=== PATIENT | female | born 1980 | race American Indian/Alaskan Native ===

== ENCOUNTER 2019-02-21 10:39 | Observation (INO) | payer OTHER ==
[2019-02-21 11:38] LABS: Mean Corpuscular HGB Conc 28 % (30-34); Platelet Count 559 K/mm3 (140-440); Red Blood Count 3.49 M/mm3 (3.65-5.03)
[2019-02-21 11:39] LABS: Mean Corpuscular Volume 53 fl (79-97); Red Cell Distribution Width 27.7 % (13.2-15.2)
[2019-02-21 11:40] LABS: Hematocrit 18.5 % (30.3-42.9); Hemoglobin 5.1 gm/dl (10.1-14.3)
--- NOTE | 2019-02-21 11:41 | Emergency Department Report ---
ED General Adult HPI - General Chief complaint: Recheck/Abnormal Lab/Rx Stated complaint: BLOOD TRANSFUSION PER DR Time Seen by Provider: 02/21/19 10:49 Source: patient Mode of arrival: Ambulatory Limitations: No Limitations - History of Present Illness Initial comments: The patient presents to the emergency department with a chief complaint abnormal labs. Patient states she has a history of heavy menstrual cycles and had a blood transfusion months ago for low hemoglobin. The patient states that she has not had a gynecological evaluation for her abnormal menstrual cycles. Patient complains of having fatigue with exertion. Patient denies chest pain, abdominal pain, but does endorse shortness of breath with exertion -: Gradual Severity scale (0 -10): 0 Improves with: none Worsens with: none Associated Symptoms: denies other symptoms Treatments Prior to Arrival: none - Related Data Home Medications Medication Instructions Recorded Confirmed Last Taken One-Daily Multi-Vitamin 1 tab-cap PO DAILY 02/21/19 02/21/19 Unknown Allergies Allergy/AdvReac Type Severity Reaction Status Date / Time No Known Allergies Allergy Verified 02/21/19 10:44 ED Review of Systems ROS: Stated complaint: BLOOD TRANSFUSION PER DR Other details as noted in HPI Comment: All other systems reviewed and negative Constitutional: denies: chills, fever Eyes: denies: eye pain, eye discharge, vision change ENT: denies: ear pain, throat pain Respiratory: denies: cough, shortness of breath, wheezing Cardiovascular: denies: chest pain, palpitations Endocrine: no symptoms reported Gastrointestinal: denies: abdominal pain, nausea, diarrhea Genitourinary: denies: urgency, dysuria, discharge Musculoskeletal: denies: back pain, joint swelling, arthralgia Skin: denies: rash, lesions Neurological: denies: headache, weakness, paresthesias Psychiatric: denies: anxiety, depression Hematological/Lymphatic: denies: easy bleeding, easy bruising ED Past Medical Hx - Past Medical History Previous Medical History?: No - Surgical History Past Surgical History?: Yes Hx Cholecystectomy: Yes Additional Surgical History: gastric sleeve, x 2 - Social History Smoking Status: Never Smoker Substance Use Type: Alcohol - Medications Home Medications: Home Medications Medication Instructions Recorded Confirmed Last Taken Type One-Daily Multi-Vitamin 1 tab-cap PO DAILY 02/21/19 02/21/19 Unknown History ED Physical Exam - General Limitations: No Limitations General appearance: alert, in no apparent distress - Head Head exam: Present: atraumatic, normocephalic - Eye Eye exam: Present: other (pale palpebral conjunctiva) - ENT ENT exam: Present: mucous membranes moist - Neck Neck exam: Present: normal inspection - Respiratory Respiratory exam: Present: normal lung sounds bilaterally. Absent: respiratory distress - Cardiovascular Cardiovascular Exam: Present: regular rate, normal rhythm. Absent: systolic murmur, diastolic murmur, rubs, gallop - GI/Abdominal GI/Abdominal exam: Present: soft, normal bowel sounds. Absent: distended, tenderness - Extremities Exam Extremities exam: Present: normal inspection - Back Exam Back exam: Present: normal inspection - Neurological Exam Neurological exam: Present: alert, oriented X3, CN II-XII intact. Absent: motor sensory deficit - Psychiatric Psychiatric exam: Present: normal affect, normal mood - Skin Skin exam: Present: warm, dry, intact, normal color. Absent: rash ED Course Vital Signs 02/21/19 02/21/19 02/21/19 10:40 11:00 11:02 Temperature 98.3 F Pulse Rate 102 H 87 Respiratory 16 10 L 16 Rate Blood Pressure 138/92 Blood Pressure 155/95 [Right] O2 Sat by Pulse 100 100 100 Oximetry 02/21/19 02/21/19 02/21/19 11:31 12:01 12:30 Temperature Pulse Rate 101 H 89 89 Respiratory 18 14 14 Rate Blood Pressure 147/100 147/100 140/88 Blood Pressure [Right] O2 Sat by Pulse 100 100 Oximetry 02/21/19 02/21/19 02/21/19 13:00 13:30 14:01 Temperature Pulse Rate 85 86 101 H Respiratory 14 11 L 14 Rate Blood Pressure 129/86 134/91 159/75 Blood Pressure [Right] O2 Sat by Pulse Oximetry 02/21/19 02/21/19 14:30 15:00 Temperature Pulse Rate 92 H 90 Respiratory 14 13 Rate Blood Pressure 149/89 133/85 Blood Pressure [Right] O2 Sat by Pulse Oximetry ED Medical Decision Making - Lab Data Result diagrams: 02/22/19 10:16 02/21/19 11:21 Lab Results 02/21/19 02/21/19 02/21/19 Range/Units 11:21 11:21 11:21 WBC 4.5 (4.5-11.0) K/mm3 RBC 3.49 L (3.65-5.03) M/mm3 Hgb 5.1 L* (10.1-14.3) gm/dl Hct 18.5 L* (30.3-42.9) % MCV 53 L (79-97) fl MCH 15 L (28-32) pg MCHC 28 L (30-34) % RDW 27.7 H (13.2-15.2) % Plt Count 559 H (140-440) K/mm3 PT 13.4 (12.2-14.9) Sec. INR 0.96 (0.87-1.13) APTT 26.4 (24.2-36.6) Sec. Sodium 138 (137-145) mmol/L Potassium 4.2 (3.6-5.0) mmol/L Chloride 102.3 (98-107) mmol/L Carbon Dioxide 26 (22-30) mmol/L Anion Gap 14 mmol/L BUN 8 (7-17) mg/dL Creatinine 0.6 L (0.7-1.2) mg/dL Estimated GFR > 60 ml/min BUN/Creatinine Ratio 13 % Glucose 100 (65-100) mg/dL Calcium 8.9 (8.4-10.2) mg/dL Total Bilirubin 0.40 (0.1-1.2) mg/dL AST 14 (5-40) units/L ALT 8 (7-56) units/L Alkaline Phosphatase 47 (35-129) units/L Total Protein 7.1 (6.3-8.2) g/dL Albumin 3.8 L (3.9-5) g/dL Albumin/Globulin Ratio 1.2 % - Medical Decision Making Results discussed with patient 2 units of packed RBCs ordered Critical Care Time: Yes Critical care time in (mins) excluding proc time.: 35 Critical care attestation.: If time is entered above; I have spent that time in minutes in the direct care of this critically ill patient, excluding procedure time. ED Disposition Clinical Impression: Anemia requiring transfusions Disposition: OP ADMIT IP TO THIS HOSP Is pt being admited?: Yes Does the pt Need Aspirin: No Condition: Good
[2019-02-21 11:47] LABS: INR 0.96 (0.87-1.13)
[2019-02-21 11:48] LABS: Partial Thromboplastin Time 26.4 Sec. (24.2-36.6)
[2019-02-21 12:01] LABS: Alanine Aminotransferase 8 units/L (7-56); Albumin 3.8 g/dL (3.9-5); BUN/Creatinine Ratio 13; Blood Urea Nitrogen 8 mg/dL (7-17); Calcium 8.9 mg/dL (8.4-10.2); Hemolysis Index 0
[2019-02-21] MEDS ORDERED: NACL 0.9% 500 ML 500 ML IV ONE ×5 (12:45→14:30)
--- NOTE | 2019-02-21 12:56 | History and Physical Report ---
History of Present Illness Chief complaint: IM weak, and my periods are really heavy History of present illness: 38 YO Female with Iron Deficiency Anemia, Menorrhagia presents to ED for evaluation. Pt states that she has experienced generalized weakness and fatigue over the past 6 months and well as "heavy periods" with worsening symptoms over the past 2 months. Pt reports having to use an entire box of tampons as well as panty liners, with episodes of soiling her clothes with blood. Pt denies fever, chills, CP, Palpitations, trauma, BRBPR, unintentional weight loss, night sweats, abdominal pain, adbominal fullness or distention, changes in bowel habits, changes in size, caliber, or color of stool. Pt seen and evaluated in ED and found to have Symptomatic Anemia with HBG of 5.1, as well as Menorrhagia. Pt admitted to medical floor for PRBC transfusion. Pt acknowledges noncompliance with Iron Replacement Therapy due to constipation. No prior admission for review. No medication listed for reconciliation at time of admission. Past History Past Medical History: anemia Past Surgical History: cholecystectomy, , Other (gastric sleeve) Social history: single, lives with family. denies: smoking, alcohol abuse, prescription drug abuse Family history: hypertension Medications and Allergies Allergies Allergy/AdvReac Type Severity Reaction Status Date / Time No Known Allergies Allergy Verified 02/21/19 10:44 Home Medications Medication Instructions Recorded Confirmed Last Taken Type No Known Home Medications [No 02/21/19 02/21/19 Unknown History Reported Home Medications] Review of Systems Constitutional: fatigue, weakness, no weight loss, no weight gain, no fever, no chills Ears, nose, mouth and throat: no ear pain, no ear discharge, no tinnitis, no decreased hearing, no nasal congestion Breasts: no change in shape, no swelling, no mass Cardiovascular: no chest pain, no orthopnea, no palpitations, no rapid/irregular heart beat, no syncope Respiratory: no cough, no cough with sputum, no excessive sputum, no hemoptysis, no shortness of breath Gastrointestinal: no abdominal pain, no nausea, no vomiting, no diarrhea Genitourinary Female: menorrhagia, no pelvic pain, no flank pain, no dysuria, no urinary frequency, no urgency, no incomplete emptying, no urge incontinence, no mixed incontinence, no difficulty voiding Rectal: no pain, no incontinence, no bleeding Musculoskeletal: no neck stiffness, no arm numbness/tingling, no redness of joints Integumentary: no rash, no pruritis, no redness, no wounds, no boils Neurological: no paralysis, no weakness, no parathesias, no numbness, no seizures, no syncope, no ataxia Psychiatric: no anxiety, no memory loss, no change in sleep habits, no hypersomnia, no change in libido, no suicidal ideation Endocrine: no cold intolerance, no heat intolerance, no excessive thirst, no polydipsia, no polyuria, no nocturia Hematologic/Lymphatic: no easy bruising, no easy bleeding, no lymphadenopathy, no lymphedema Allergic/Immunologic: no urticaria, no allergic rhinitis, no wheezing, no anaphylaxis Exam - Constitutional Vitals: Temp Pulse Resp BP Pulse Ox 98.3 F 101 H 18 147/100 100 02/21/19 10:40 02/21/19 11:31 02/21/19 11:31 02/21/19 11:31 02/21/19 11:31 General appearance: Present: no acute distress, well-nourished - EENT Eyes: Present: PERRL (conjunctival pallor) ENT: hearing intact, clear oral mucosa - Neck Neck: Present: supple, normal ROM - Respiratory Respiratory effort: normal Respiratory: bilateral: CTA - Cardiovascular Heart Sounds: Present: S1 & S2. Absent: rub, click - Extremities Extremities: pulses symmetrical, No edema Peripheral Pulses: within normal limits - Abdominal General gastrointestinal: Present: soft, non-tender, non-distended, normal bowel sounds Female genitourinary: Present: normal - Integumentary Integumentary: Present: clear, warm, dry - Musculoskeletal Musculoskeletal: gait normal, strength equal bilaterally - Psychiatric Psychiatric: appropriate mood/affect, intact judgment & insight - Neurologic Neurologic: CNII-XII intact, moves all extremities Results - Labs CBC & Chem 7: 02/21/19 11:21 02/21/19 11:21 Labs: Abnormal lab results 02/21/19 02/21/19 Range/Units 11:21 11:21 RBC 3.49 L (3.65-5.03) M/mm3 Hgb 5.1 L* (10.1-14.3) gm/dl Hct 18.5 L* (30.3-42.9) % MCV 53 L (79-97) fl MCH 15 L (28-32) pg MCHC 28 L (30-34) % RDW 27.7 H (13.2-15.2) % Plt Count 559 H (140-440) K/mm3 Creatinine 0.6 L (0.7-1.2) mg/dL Albumin 3.8 L (3.9-5) g/dL Assessment and Plan - Patient Problems (1) Anemia requiring transfusions Current Visit: Yes Status: Acute Plan to address problem: PRBC Transfusion, repeat CBC, (2) Menorrhagia Current Visit: Yes Status: Acute Qualifiers: Menorrahagia type: with onset of menstrual periods Qualified Code(s): N92.2 - Excessive menstruation at puberty Plan to address problem: PRBC transfusion, APPLE PICKER consulted in ED. Pt found to have normal APPLE PICKER ultrasound without evidence of uterine fibroid, 6 months ago as per patient. (3) Iron deficiency anemia Current Visit: Yes Status: Acute Qualifiers: Iron deficiency anemia type: chronic blood loss Qualified Code(s): D50.0 - Iron deficiency anemia secondary to blood loss (chronic) Plan to address problem: Iron replacement therapy, PRBC transfusion, (4) DVT prophylaxis Current Visit: Yes Status: Acute Plan to address problem: SCD to BLE while in bed, Pt ambulating independently and without restriction
[2019-02-21] MEDS ORDERED: SODIUM CHLORIDE FLUSH SYRINGE 10 ML IV PRN (14:11)
[2019-02-21] MEDS ORDERED: ZOFRAN IV PRN (14:11)
[2019-02-21] MEDS ORDERED: PROVENTIL IH PRN (14:11)
[2019-02-21] MEDS ORDERED: TYLENOL PO PRN (14:11)
[2019-02-21 15:20] LABS: Total Cells Counted 100
[2019-02-21 15:21] LABS: Anisocytosis 3+; Dimorphic RBC Yes; Hypochromasia 2+
[2019-02-21] MEDS: FEOSOL PO SCH ×2 (15:48→20:00)
--- NOTE | 2019-02-21 16:01 | Consultation ---
History of Present Illness Consult date: 02/21/19 Requesting physician: BRITTANY MAURER Reason for consult: menorrhagia, other (severe anemia) History of present illness: Patient is a 38 yo BF LMP 02/10/19 with Iron Deficiency Anemia, Menorrhagia presents to ED for evaluation. She is not currently bleeding, but states that she has experienced generalized weakness and fatigue over the past 6 months and well as "heavy periods" with worsening symptoms over the past 2 months. She reports having to use an entire box of tampons as well as panty liners, with episodes of soiling her clothes with blood, but denies fever, chills, CP, Palpitations, trauma, BRBPR, unintentional weight loss, night sweats, abdominal pain, adbominal fullness or distention, changes in bowel habits, changes in size, caliber, or color of stool. She was seen and evaluated in ED and found to have Symptomatic Anemia with HBG of 5.1, as well as Menorrhagia. She is admitted to medical floor for PRBC transfusion. She acknowledges noncompliance with Iron Replacement Therapy due to constipation. No prior admission for review. No medication listed for reconciliation at time of admission. I have been consulted to evaluate her Menorrhagia. Past History Past Medical History: other (anemia) Past Surgical History: cholecystectomy, gastric bypass, PARTS COUNTER SALESPERSON/uterine surgery (BTL), section (x2) Social history: no significant social history, Medications and Allergies Allergies Allergy/AdvReac Type Severity Reaction Status Date / Time No Known Allergies Allergy Verified 02/21/19 10:44 Home Medications Medication Instructions Recorded Confirmed Last Taken Type One-Daily Multi-Vitamin 1 tab-cap PO DAILY 02/21/19 02/21/19 Unknown History Active Meds: Active Medications Acetaminophen (Tylenol) 650 mg PO Q4H PRN PRN Reason: Pain MILD(1-3)/Fever >100.5/MOSHER Albuterol (Proventil) 2.5 mg IH Q4HRT PRN PRN Reason: Shortness Of Breath Albuterol (Proventil) 2.5 mg IH TIDRT WILLIS Ferrous Sulfate (Feosol) 325 mg PO TID [facility] Last Admin: 02/21/19 15:48 Dose: 325 mg Documented by: Ondansetron HCl (Zofran) 4 mg IV Q8H PRN PRN Reason: Nausea And Vomiting Senna/Docusate Sodium (Senokot S) 2 tab PO Q12H PRN PRN Reason: Laxative Effect Sodium Chloride (Sodium Chloride Flush Syringe 10 Ml) 10 ml IV BID WILLIS Sodium Chloride (Sodium Chloride Flush Syringe 10 Ml) 10 ml IV PRN PRN PRN Reason: LINE FLUSH Review of Systems All systems: negative - Vital Signs Vital signs: Vital Signs Temp Pulse Resp BP Pulse Ox 98.3 F 102 H 16 155/95 100 02/21/19 10:40 02/21/19 10:40 02/21/19 10:40 02/21/19 10:40 02/21/19 10:40 Temp Pulse Resp BP Pulse Ox 98.3 F 92 H 14 149/89 100 02/21/19 10:40 02/21/19 14:30 02/21/19 14:30 02/21/19 14:30 02/21/19 12:01 - Physical Exam Breasts: Positive: deferred Cardiovascular: Regular rate Lungs: Positive: Clear to auscultation Abdomen: Positive: normal appearance, soft Genitourinary (Female): Positive: other (deferred) Extremities: Positive: normal Results Result Diagrams: 02/21/19 11:21 02/21/19 11:21 Abnormal lab results 02/21/19 02/21/19 02/21/19 Range/Units 11:21 11:21 11:21 RBC 3.49 L (3.65-5.03) M/mm3 Hgb 5.1 L* (10.1-14.3) gm/dl Hct 18.5 L* (30.3-42.9) % MCV 53 L (79-97) fl MCH 15 L (28-32) pg MCHC 28 L (30-34) % RDW 27.7 H (13.2-15.2) % Plt Count 559 H (140-440) K/mm3 Lymphocytes % (Manual) 38.0 H (13.4-35.0) % Monocytes % (Manual) 9.0 H (0.0-7.3) % Creatinine 0.6 L (0.7-1.2) mg/dL Albumin 3.8 L (3.9-5) g/dL Crossmatch See Detail All other labs normal. Ultrasound: pending Assessment and Plan - Patient Problems (1) Anemia requiring transfusions Onset Date: 02/21/19 Current Visit: Yes Status: Acute Plan to address problem: A: Symptomatic anemia - currently being transfused Menorrhagia - not currently bleeding P: Agree with admission for blood transfusion Will obtain a pelvic u/s Upon discharge she can follow up with me in the office for further evaluation including a Pap smear and endometrial biopsy Will follow with you. (2) Menorrhagia Onset Date: 02/21/19 Current Visit: Yes Status: Acute Qualifiers: Menorrahagia type: with regular cycle Qualified Code(s): N92.0 - Excessive and frequent menstruation with regular cycle (3) Acute blood loss anemia Onset Date: 02/21/19 Current Visit: Yes Status: Acute
[2019-02-21] MEDS ORDERED: PROVENTIL IH SCH (20:00)
[2019-02-21] MEDS: SODIUM CHLORIDE FLUSH SYRINGE 10 ML IV SCH (22:00)
[2019-02-21] MEDS: SENOKOT S PO PRN (22:06)
[2019-02-22] MEDS: FEOSOL PO SCH ×2 (10:06→15:12)
[2019-02-22] MEDS: SODIUM CHLORIDE FLUSH SYRINGE 10 ML IV SCH (10:07)
[2019-02-22] MEDS: SENOKOT S PO PRN (10:13)
[2019-02-22 10:59] LABS: Hematocrit 31.2 % (30.3-42.9); Hemoglobin 9.7 gm/dl (10.1-14.3)
--- NOTE | 2019-02-22 12:13 | Ultrasound Report ---
ULTRASOUND PELVIC COMPLETE ULTRASOUND TRANSVAGINAL HISTORY: Menorrhagia, severe anemia. COMPARISON: None. TECHNIQUE: Transabdominal and transvaginal ultrasound with color doppler interrogation. FINDINGS: Uterus: Anteverted. 9.9 x 4.7 x 4.9 cm. No evidence for uterine fibroid disease. Small nabothian cysts are noted in the cervix. Endometrium: 4 mm. No focal abnormality. Right ovary: 3.0 x 1.5 x 2.3 cm. No focal abnormality. Left ovary: 4.7 x 2.1 x 2.5 cm. A 1.7 cm cyst is identified in the left ovary. No pelvic fluid or mass is identified. Normal color doppler interrogation. IMPRESSION: 1.7 cm left ovarian cyst.
--- NOTE | 2019-02-22 13:09 | Discharge Summary ---
Providers - Providers Date of Admission: 02/21/19 14:11 Date of discharge: 02/22/19 Attending physician: FAITH STAPLETON 02/21/19 13:57 Consult to Physician [CONS] Routine Comment: Consulting Provider: JHON ESTRELLA Physician Instructions: Reason For Exam: menorrhagia Primary care physician: GRISELDA RODGERS Hospitalization Condition: Good Pertinent studies: Patient required transfusion 3 units packed red blood cells secondary to acute blood loss anemia. H&H went from 5 and 18 to 9.7 and 32. Hospital course: Patient presented with excessive vaginal bleeding and menorrhagia/iron deficiency anemia. Patient was admitted for symptomatic anemia transfuse 3 units packed red blood cells. Symptomatically patient improved. 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 Follow-up with Dr. Avelar in 1 week. Disposition: - TO HOME OR SELFCARE - Discharge Diagnoses (1) Acute blood loss anemia Status: Acute (2) Iron deficiency anemia Status: Acute Qualifiers: Iron deficiency anemia type: chronic blood loss Qualified Code(s): D50.0 - Iron deficiency anemia secondary to blood loss (chronic) (3) Menorrhagia Status: Acute Qualifiers: Menorrahagia type: with regular cycle Qualified Code(s): N92.0 - Excessive and frequent menstruation with regular cycle Core Measure Documentation - Palliative Care Palliative Care/ Comfort Measures: Not Applicable - Core Measures Any of the following diagnoses?: none Exam - Constitutional Vitals: Temp Pulse Resp BP Pulse Ox 98.4 F 78 18 142/91 100 02/22/19 06:02 02/22/19 06:02 02/22/19 04:15 02/22/19 06:02 02/22/19 08:04 General appearance: Present: no acute distress, well-nourished - EENT Eyes: Present: PERRL ENT: hearing intact, clear oral mucosa - Neck Neck: Present: supple, normal ROM - Respiratory Respiratory effort: normal Respiratory: bilateral: CTA - Cardiovascular Heart Sounds: Present: S1 & S2. Absent: rub, click - Extremities Extremities: pulses symmetrical, No edema Peripheral Pulses: within normal limits - Abdominal General gastrointestinal: Present: soft, non-tender, non-distended, normal bowel sounds Female genitourinary: Present: normal - Integumentary Integumentary: Present: clear, warm, dry - Musculoskeletal Musculoskeletal: gait normal, strength equal bilaterally - Psychiatric Psychiatric: appropriate mood/affect, intact judgment & insight - Neurologic Neurologic: CNII-XII intact, moves all extremities Plan Activity: no restrictions Weight Bearing Status: Full Weight Bearing Diet: regular Follow up with: GRISELDA RODGERS MD [Primary Care Provider] - 3-5 Days
[2019-02-22 13:44] VITALS: BP 130/90
== END 2019-02-22 15:24 | disposition home or self-care (01) ==
LOC: ED 10:39 → 3A 14:11
PROVIDERS: ADMIT Internal Medicine; ATTEND Internal Medicine
DX: D50.9 Iron deficiency anemia, unspecified (principal); N92.0 Excessive and frequent menstruation with regular cycle; Z90.49 Acquired absence of other specified parts of digestive tract; Z98.890 Other specified postprocedural states; Z79.899 Other long term (current) drug therapy
CPT/HCPCS: 36415; 36430; 76830; 76856; 80053; 85007; 85014; 85018; 85025; 85610; 85730; 86850; 86900; 86901; 86920; 94640; 94760; 99291; G0378; J7040; P9016